=== PATIENT | male | born 1995 | race Caucasian/White ===

== ENCOUNTER → 2024-03-23 | Outpatient (CLI) | payer BC, SELFPAY ==
--- NOTE | 2024-03-23 16:00 | XR_ITS ---
Examination: MRI lumbar spine without contrast Date and time of exam: March 23, 2024 1652 hours INDICATIONS: Lower back pain radiating down both legs paresthesias and numbness in both legs beginning 2017 worse since August 2023 Technique: Multiple MRI axial and sagittal sections lumbar spine. Sagittal T2-weighted images, TR 3500, TE 118 T1 weighted transverse sections, TR 688 T8.5, T2-weighted sagittal sections T1 weighted sagittal sections TR 621, TE 30 T2 axial sections, TR 4, 190, TE 84. Findings: Straightening normal lumbar lordosis No lumbar fracture Disc desiccation L4-L5 No spondylolisthesis L5-S1 2 mm central right paracentral disc bulge contiguous with the right S1 nerve root L4-L5 large, 9 mm extruded central right paracentral disc, severely indenting the thecal sac L3-L4 no disc protrusion L2-L3 no disc protrusion L1-L2 no disc protrusion IMPRESSION: L5-S1 2 mm central right paracentral disc bulge L4-L5 large, 9 mm, extruded central right paracentral disc, severely indenting the thecal sac
== END | disposition home or self-care (01) ==
PROVIDERS: PCP Physician Assistant; Referring Provider Physician Assistant; Visit Provider Physician Assistant
DX: M51.379 Other intervertebral disc degeneration, lumbosacral region without mention of lumbar back pain or lower extremity pain (principal); M51.369 Other intervertebral disc degeneration, lumbar region without mention of lumbar back pain or lower extremity pain; M51.26 Other intervertebral disc displacement, lumbar region
CPT/HCPCS: 72148

== ENCOUNTER 2024-05-14 21:28 | Emergency (ER) | payer OTHER, BC, SELFPAY ==
[2024-05-14 21:30] VITALS: BMI 32.5
--- NOTE | 2024-05-14 22:39 | XR_ITS ---
Examination: CT lumbar spine, without contrast. 2-D sagittal reconstructions. 2-D coronal reconstructions. 3-D reconstructions. Date and time of exam:May 15, 2024 0157 hrs. Indications: Lower back pain post surgery this week CTDI: vol (mGy):52.2 DLP: (mGycm):1498 Technique: Multiple 1.25 mm axial sections of the lumbar spine without intravenous contrast have been obtained. 2-D sagittal and coronal reconstructions have been obtained. 3-D reconstructions have been obtained. Low dose protocols were performed. One or more of the following dose reduction techniques were used; automated exposure control, adjustment of the mA and/or KV according to patient size, use of iterative reconstruction technique. Findings: Adequate alignment lumbar vertebral bodies Mild disc narrowing L4-L5 Status post laminectomies L4, L5 No vertebral body fracture L5-S1, L4-L5 right neural foraminal stenosis with mild compression L5 and right L4 nerve roots Impression: L4-L5, L5-S1 right neural foraminal stenosis with mild compression right L4 and L5 nerve roots
--- NOTE | 2024-05-14 22:40 | PD.EDADDENDU ---
Emergency Room Addendum Addendum Narrative: 28 yo m present to ED for c/o of swelling/increase drainage lower back, recent back surgery I have greeted and performed a focused initial assessment of this patient. A comprehensive ED assessment and evaluation of the patient, analysis of all test results, and completion of the medical decision making process will be conducted by additional ED providers.
[2024-05-14 22:47] VITALS: BP 120/79; PULSE 142; RESP 19; TEMP 38.3; O2SAT 96
--- NOTE | 2024-05-14 22:49 | EKG_ITS ---
[facility] Test Date: 2024-05-14 Pat Name: JOEL BALDERAS Department: Room: - Gender: Male Secret Code Expert: : 1995 Requested By: Clay Howell Order Number: [id number] Reading MD: Clay Howell Measurements Intervals [place] Rate: 125 P: 57 CA: 154 QRS: 78 QRSD: 106 T: 43 QT: 293 QTc: 423 Interpretive Statements SINUS TACHYCARDIA ABNORMAL RHYTHM ECG No previous ECG available for comparison /store/S0/[id number]/ecg/[id number].pdf
[2024-05-14 23:00] VITALS: PULSE 128; RESP 18; RESP 89; O2SAT 989
--- NOTE | 2024-05-14 23:00 | PC.NURSE ---
Initail contact with pt. s/p lower back surgery on 05/03/24. Drsg to lower back intact, clean and dry. Pt c/o lower back pain and numbness to rt side of back radiating down to rt lower leg, lat aspect.
[2024-05-14 23:08] LABS: Lactate (Lactic Acid) 1.6 mMol/L (0.4-2.0)
[2024-05-14 23:10] LABS: Basophils # (Auto) 0.1 Thou/mm3 (0.0-0.2); Basophils % (Auto) 0 % (0-2.5); Eosinophils # (Auto) 0.1 Thou/mm3 (0.0-0.5); Eosinophils % (Auto) 0 % (0-10); Hematocrit 42.1 % (41.0-53.0); Hemoglobin 14.6 g/dL (13.5-16.0); Immature Granulocytes % (Auto) 1 % (0-0); Immature Granulocytes Auto 0.08 Thou/mm3 (0.00-0.00); Lymphocytes # (Auto) 0.9 Thou/mm3 (1.0-4.8); Lymphocytes % (Auto) 6 % (10-50); Mean Corpuscular HGB Conc 34.7 g/dl (31.0-37.0); Mean Corpuscular Hemoglobin 29.9 pg (25.0-35.0); Mean Corpuscular Volume 86 fL (80-100); Monocytes % (Auto) 6 % (0-12); Neutrophils # (Auto) 13.1 Thou/mm3 (1.8-7.7); Neutrophils % (Auto) 86 % (37-80); Nucleated Red Blood Cell % 0 /100 WBC (0); Platelet Count 285 Thou/mm3 (140-440); RDW Standard Deviation 39.4 fL (35.1-43.9); Red Blood Count 4.89 Miln/mm3 (4.50-5.90); White Blood Count 15.2 Thou/mm3 (3.8-10.6)
[2024-05-14 23:20] LABS: Sed Rate (ESR) 5 mm/hr (0-15)
--- NOTE | 2024-05-14 23:21 | PD.EDADULT ---
ED General RME/HPI General Chief complaint: Back Pain/Injury Stated complaint: LOWER BACK PAIN, RECENT BACK SURGERY Time Seen by Provider: 05/15/24 04:05 Arrival date/time: 05/14/24 21:28 RME / HPI RME / HPI narrative: Patient is 28 years old male with past medical history significant of recent laminectomy 2 weeks ago presented to the ED due to severe back pain and increased output from incision. He reports he underwent laminectomy at [facility] 2 weeks ago and his postoperative course was insignificant until yesterday when he noticed increased output of dark brown fluid from his incision site. He also developed significant pain. He reports chills. He reports that after surgery he developed numbness in right lower extremity and was reassured by his surgeon that it will improve slowly with the time. He denies any chest pain, abdominal pain, weakness in lower extremities, urinary or fecal incontinence. Related Data Home Medications ?Medication ?Instructions ?Recorded ?Confirmed cyclobenzaprine 10 mg tablet 10 mg PO Q8H 05/15/24 05/15/24 doxepin 10 mg capsule 10 mg PO .At HS 05/15/24 05/15/24 famotidine 20 mg tablet 20 mg PO Q12H 05/15/24 05/15/24 hydromorphone 4 mg tablet 4 mg PO Q4H 05/15/24 05/15/24 nortriptyline 10 mg capsule 10 mg PO .At HS 05/15/24 05/15/24 pregabalin 100 mg capsule (Lyrica) 100 mg PO TID Nerve pain 05/15/24 05/15/24 Previous Rx's ?Medication ?Instructions ?Recorded ibuprofen 600 mg tablet 600 mg PO Q6H PRN pain #30 tabs 10/04/23 lidocaine 5 % topical patch 1 patch topical Q24H #15 ea 10/04/23 Allergies Allergy/AdvReac Type Severity Reaction Status Date / Time No Known Allergies Allergy Verified 05/14/24 21:30 Review of Systems Review of Systems Systems Reviewed: All systems reviewed, normal except as documented ED Exam Narrative Physical exam: Gen: Well-developed and well-nourished male. HEENT: NCAT, PERRLA, EOMI, MMM, anicteric conjunctivae. CVS: normal S1 and S2. RRR. No M/R/G. Resp: CTA B/L. No rhonchi, rales, crackles or wheezing. Abd: soft, non-tender, non-distended. BS+ in all 4 quadrants. MSK: Good ROM in BUE & BLE. No edema or rash. 5 cm midline lumbar surgical scar with with surrounding hyperemia and tenderness, no drainage. Neuro: CN II-XII grossly intact. Strength 5/5 in BUE & BLE. Alert and oriented x3. Decreased sensations over RLE. Psych: appropriate mood and affect. Course Course Course Narrative: 0340: CT scan showed infection process at surgical site. 0430: transfer process initiated. 0600: passed to day shift. Quality Measures Current suspected stage: sepsis Possible source: other (post op surgical site) Blood cultures ordered: yes Antibiotic ordered: Yes Pertinent labs: 05/14/24 22:50 Lactic Acid 1.6 mMol/L (0.4-2.0) Procalcitonin 0.11 ng/ml (0.0-0.49) sepsis Orders Category Date Time Status Transcript Clerk STAT Care 05/14/24 22:49 Active Continuous Pulse Oximetry STAT Care 05/14/24 22:49 Active EKG (ED ONLY) *Do not use* NOW Care 05/14/24 22:49 Completed Insert IV NOW Care 05/14/24 22:49 Active NPO STAT Care 05/14/24 22:49 Active Transfer to another facility [Transfer/Discharge] Stat Discharge 05/15/24 04:[address] lumbar spine wo/w con Stat Exams 05/14/24 22:[address] lumbar spine wo/w con Stat Exams 05/15/24 00:42 Ordered EKG (ED Only) Stat Exams 05/14/24 22:49 Draft Blood Culture (Lab) Stat Lab 05/14/24 22:55 Received CBC Stat Lab 05/14/24 22:50 Completed CMP [Comprehensive Metabolic Panel] Stat Lab 05/14/24 22:50 Completed CRP [C-Reactive Protein] Stat Lab 05/14/24 22:50 Completed ESR [Sed Rate (ESR)] Stat Lab 05/14/24 22:50 Completed INR [Prothrombin Time with INR] Stat Lab 05/14/24 22:50 Completed LDH (Lactate Dehydrogenase) Stat Lab 05/14/24 22:50 Completed Lactic Acid [Lactate (Lactic Acid)] Stat Lab 05/14/24 22:50 Completed Lipase Stat Lab 05/14/24 22:50 Completed Magnesium Stat Lab 05/14/24 22:50 Completed Partial Thromboplastin Time Stat Lab 05/14/24 22:50 Completed Phosphorous Stat Lab 05/14/24 22:50 Completed Procalcitonin Stat Lab 05/14/24 22:50 Completed Troponin I Stat Lab 05/14/24 22:50 Completed Urinalysis Stat Lab 05/15/24 00:31 Completed Urine Culture Stat Lab 05/15/24 00:31 Received Wound Culture and Gram Stain Stat Lab 05/15/24 05:36 Ordered Acetaminophen Tab [Tylenol ES Tab] Med 05/14/24 22:49 Discontinued 1,000 mg PO X1 ONE HYDROmorphone INJ [Dilaudid Inj] Med 05/14/24 22:39 Discontinued 1 mg IVP X1 ONE HYDROmorphone INJ [Dilaudid Inj] Med 05/15/24 04:54 Discontinued 1 mg IVP X1 ONE Ringers Lactated 1000 ml [Lactated Ringers] 1,000 ml Med 05/14/24 22:49 Discontinued IV 999 mls/hr Vancomycin Inj 1,000 mg Med 05/15/24 04:27 Discontinued Sodium Chloride 0.9% 250 ml [Ns] 250 ml IV X1 cefTRIAXone [Rocephin] 1,000 mg Med 05/14/24 22:49 Discontinued SODIUM CHLORIDE 0.9% (Popper) [Ns 0.9% (P)] 50 ml IV X1 cefTRIAXone [Rocephin] 1,000 mg Med 05/15/24 04:26 Discontinued SODIUM CHLORIDE 0.9% (Popper) [Ns 0.9% (P)] 50 ml IV X1 Oxygen Delivery NOW RT 05/14/24 22:49 Active Vital Signs Vital signs: Vital Signs Temperature 100.9 F H 05/14/24 22:47 Pulse Rate 142 H 05/14/24 22:47 Respiratory Rate 19 05/14/24 22:47 Blood Pressure 120/79 05/14/24 22:47 Pulse Oximetry (%) 96 05/14/24 22:47 Oxygen Delivery Method Room Air 05/14/24 22:47 Procedures -ED EKG Interpretation #1: Date of EK05/14/24 Time of EK:12 Rate: 125 Interpretation: Reviewed by me EKG Impression: Sinus arrhythmia MDM Patient data External records reviewed:: [facility] previous records Clinical information provided by:: patient Social determinants that could affect healthcare access:: none Patient has the following chronic illnesses:: recent laminectomy 2 weeks ago How is presenting disease/condition affected by chronic disease/condition?: caused by Evaluation data The following diagnostics were reviewed and interpreted by me:: lab results, radiology exam(s) and EKG tracing(s) Lab and/or radiology exams considered but not ordered:: MRI Interpretation Summary: Post op infection Medications Medications considered but not ordered:: na Medication administrations:: Medication Administration History Discontinued Medications Acetaminophen (Acetaminophen 500 Mg Tablet) 1,000 mg PO X1 ONE Stop: 05/14/24 22:50 Last Admin: 05/14/24 23:23 Dose: 1,000 mg Documented By: FINA Hydromorphone HCl (Hydromorphone Inj 2 Mg/Ml Vial) 1 mg IVP X1 ONE Stop: 05/14/24 22:40 Last Admin: 05/14/24 23:24 Dose: 1 mg Documented By: FINA Hydromorphone HCl (Hydromorphone Inj 2 Mg/Ml Vial) 1 mg IVP X1 ONE Stop: 05/15/24 04:55 Last Admin: 05/15/24 06:07 Dose: 1 mg Documented By: FINA Lactated Ringer's (Lactated Ringers) 1,000 mls @ 999 mls/hr IV .Q1H1M ONE Stop: 05/14/24 23:49 Last Infusion: 05/15/24 00:26 Dose: Infused Documented By: Admin: 05/14/24 23:25 Dose: 999 mls/hr Documented By: FINA Ceftriaxone Sodium 1,000 mg/ (Sodium Chloride) 50 mls @ 100 mls/hr IV X1 ONE Stop: 05/14/24 23:18 Last Infusion: 05/14/24 23:59 Dose: Infused Documented By: Admin: 05/14/24 23:29 Dose: 100 mls/hr Documented By: FINA Ceftriaxone Sodium 1,000 mg/ (Sodium Chloride) 50 mls @ 100 mls/hr IV X1 ONE Stop: 05/15/24 04:55 Last Admin: 05/15/24 04:48 Dose: 100 mls/hr Documented By: FINA Vancomycin HCl 1,000 mg/ (Sodium Chloride) 250 mls @ 150 mls/hr IV X1 ONE Stop: 05/15/24 06:06 Last Admin: 05/15/24 06:02 Dose: 150 mls/hr Documented By: LB Ceftriaxone 2g, vancomycin 1g, hydromorphone 1mg, acetaminophen 1g, LR 1L. Consultations Consultation(s) initiated? (list below): No Diagnosis Differential Diagnosis ED Complaint MDM: Cellulitis, abscess, post op infection Most likely diagnosis given after review of the tests above:: Post op infection Admission Indicated Admission indicated?: not indicated Explain why admission is indicated or not indicated:: Patient needs to be transferred to [facility] for evaluation of post op infection. Admission Request Was there a request for admission?: No Disposition Plan Disposition Plan: Transfer Medical Decision Making Differential Diagnosis Differential Diagnosis: Cellulitis, abscess, post op infection Lab Data 05/14/24 22:50 05/14/24 22:50 Labs: Lab Results 05/14/24 05/15/24 Range/Units 22:50 00:31 WBC 15.2 H (3.8-10.6) Thou/mm3 RBC 4.89 (4.50-5.90) Miln/mm3 Hgb 14.6 (13.5-16.0) g/dL Hct 42.1 (41.0-53.0) % MCV 86 (80-100) fL MCH 29.9 (25.0-35.0) pg MCHC 34.7 (31.0-37.0) g/dl RDW Std Deviation 39.4 (35.1-43.9) fL Plt Count 285 (140-440) Thou/mm3 Neut % (Auto) 86 H (37-80) % Lymph % (Auto) 6 L (10-50) % [place] % (Auto) 6 (0-12) % Eos % (Auto) 0 (0-10) % Baso % (Auto) 0 (0-2.5) % Neut # (Auto) 13.1 H (1.8-7.7) Thou/mm3 Lymph # (Auto) 0.9 L (1.0-4.8) Thou/mm3 [place] # (Auto) 1.0 H (0.0-0.8) Thou/mm3 Eos # (Auto) 0.1 (0.0-0.5) Thou/mm3 Baso # (Auto) 0.1 (0.0-0.2) Thou/mm3 Immature Gran # (Auto) 0.08 H (0.00-0.00) Thou/mm3 Absolute Nucleated RBC 0.00 (0.00-0.00) Thou/mm3 Immature Gran % 1 H (0-0) % Nucleated RBC % 0 (0) /100 WBC ESR 5 (0-15) mm/hr PT 10.9 (9.0-12.2) Seconds INR 1.0 (0.9-1.3) APTT 26.0 (22.0-36.0) Seconds Sodium 135 L (136-145) mMol/L Potassium 4.2 (3.4-5.1) mMol/L Chloride 100 (98-107) mMol/L Carbon Dioxide 27.3 (20.0-31.0) mMol/L Anion Gap 8 (7-16) BUN 16 (9-23) mg/dL Creatinine 1.2 (0.6-1.3) mg/dL Estim Creat Clear Calc 117.8 (>60) mL/min eGFR > 60 (60 - ) See Note BUN/Creatinine Ratio 13 (12-20) Ratio Glucose 102 (74-106) mg/dL Calculated Osmolality 271 L (275-295) Lactic Acid 1.6 (0.4-2.0) mMol/L Calcium 9.9 (8.3-10.6) mg/dL Corrected Calcium 9.9 (8.5-10.1) mg/dL Phosphorus 4.3 (2.4-5.1) mg/dL Magnesium 1.8 (1.6-2.6) mg/dL Total Bilirubin 0.5 (0.3-1.2) mg/dL AST 26 (0-34) U/L ALT 57 H (10-49) U/L Alkaline Phosphatase 41 L (46-116) U/L Lactate Dehydrogenase 153 (120-246) U/L Troponin I < 0.002 (0.0-0.045) ng/mL C-Reactive Prot, Quant 1.8 H (0.0-0.9) mg/dL Total Protein 7.6 (5.7-8.2) gm/dL Albumin 5.1 H (3.5-5.0) gm/dL Globulin 2.5 (2.3-3.5) gm/dL Albumin/Globulin Ratio 2.0 (1.2-2.2) Lipase 31 (12-53) U/L Procalcitonin 0.11 (0.0-0.49) ng/ml Ur Collection Type Clean Catch Urine Color Lt-Yellow (Lt Yel-Yel) Urine Clarity Clear (Clear/Hazy) Urine pH 6.5 (5.0-7.0) Ur Specific [place] 1.013 (1.001-1.035) Urine Protein Negative (Neg - Trace) Urine Glucose (UA) Negative (Negative) Urine Ketones Negative (Negative) Urine Blood Negative (Negative) Urine Nitrite Negative (Negative) Urine Bilirubin Negative (Negative) Urine Urobilinogen (Auto) Negative (0.0-1.0) mg/dL Ur Leukocyte Esterase Negative (Negative) Urine RBC 1 (0-3) /hpf Urine WBC < 1 (0-5) /hpf Ur Squamous Epith Cells 0 (0-5) /hpf Urine Bacteria None (None) Discharge Plan Plan Facility Pt Being Transferred to: [facility] Prescriptions/Referrals Prescriptions/Med Rec: No Action ibuprofen 600 mg tablet 600 mg PO Q6H PRN (Reason: pain) Qty: 30 0RF lidocaine 5 % adhesive patch,medicated 1 patch topical Q24H Qty: 15 0RF Rx Instructions: leave on most painful area for up to 12 hrs cyclobenzaprine 10 mg tablet 10 mg PO Q8H Patient Comments: TAKE 1 TABLET BY MOUTH 3 TIMES A DAY doxepin 10 mg capsule 10 mg PO .At HS Patient Comments: take 1 capsule by mouth at bedtime famotidine 20 mg tablet 20 mg PO Q12H Patient Comments: take 1 tablet by mouth twice a day nortriptyline 10 mg capsule 10 mg PO .At HS Patient Comments: TAKE 2 CAPSULES BY MOUTH AT BEDTIME hydromorphone 4 mg tablet 4 mg PO Q4H Patient Comments: take 1 tablet by mouth four times a day pregabalin [Lyrica] 100 mg capsule 100 mg PO TID Referrals: No Primary/Family,Physician [Primary Care Provider] - In 1 week Problem List Clinical Impression: Post op infection Patient/Caregiver Discharge Instructions Print Language: Niuean Stand Alone Forms: Priscila Award Info., Patient Portal Info Letter Attestation Attestation I, Dr. Malinda MD was present for the pertinent history and physical exam for this patient, reviewed the note, was involved in the management of this patient, have reviewed the resident note and agree.
[2024-05-14 23:23] VITALS: TEMP 38.3
[2024-05-14] MEDS: ACETAMINOPHEN 500 MG TABLET 1000 MG PO (23:23)
[2024-05-14] MEDS: HYDROmorphone INJ 2 MG/ML VIAL 1 MG IVP (23:24)
[2024-05-14] MEDS: RINGERS LACTATED 1000 ML 1,000 ML 999 ML IV (23:25)
[2024-05-14 23:29] LABS: Prothrombin Time 10.9 Seconds (9.0-12.2)
[2024-05-14] MEDS: cefTRIAXone 1,000 MG in SODIUM CHLORIDE 0.9% (Popper) 50 ML 100 MG IV (23:29)
[2024-05-14 23:40] LABS: Alanine Aminotransferase 57 U/L (10-49); Albumin, Serum 5.1 gm/dL (3.5-5.0); Alkaline Phosphatase 41 U/L (46-116); Anion Gap 8 (7-16); Aspartate Amino Transferase 26 U/L (0-34); BUN/Creatinine Ratio 13 Ratio (12-20); Bilirubin,Total 0.5 mg/dL (0.3-1.2); Blood Urea Nitrogen 16 mg/dL (9-23); C-Reactive Protein 1.8 mg/dL (0.0-0.9); Calcium 9.9 mg/dL (8.3-10.6); Calcium (Corrected) 9.9 mg/dL (8.5-10.1); Carbon Dioxide 27.3 mMol/L (20.0-31.0); Chloride 100 mMol/L (98-107); Creatinine (Component) 1.2 mg/dL (0.6-1.3); Estimated Creatinine Clearance 117.8 mL/min (>60); Globulin 2.5 gm/dL (2.3-3.5); Glucose 102 mg/dL (74-106); LDH (Lactate Dehydrogenase) 153 U/L (120-246); Lipase 31 U/L (12-53); Magnesium 1.8 mg/dL (1.6-2.6); Osmolality,Calculated 271 (275-295); Phosphorous 4.3 mg/dL (2.4-5.1); Potassium 4.2 mMol/L (3.4-5.1); Procalcitonin 0.11 ng/ml (0.0-0.49); Sodium 135 mMol/L (136-145); Total Protein 7.6 gm/dL (5.7-8.2); Troponin I < 0.002 ng/mL (0.0-0.045); eGFR > 60 See Note
[2024-05-15] VITALS (8 sets, daily range): BP systolic 104–146; BP diastolic 57–73; PULSE 96–122; RESP 15–18; TEMP 37.1–37.6; O2SAT 94–98
[2024-05-15 00:52] LABS: Collection Type, Urine Clean Catch; Squamous Epithelial Cell,Urine 0 /hpf (0-5)
[2024-05-15 01:00] LABS: Bilirubin,Urine Negative (Negative); Blood,Urine Negative (Negative); Clarity,Urine Clear (Clear/Hazy); Color,Urine Lt-Yellow (Lt Yel-Yel); Glucose, Urine Negative (Negative); Ketones,Urine Negative (Negative); Leukocyte Esterase,Urine Negative (Negative); Nitrite,Urine Negative (Negative); PH,Urine 6.5 (5.0-7.0); Protein,Urine Negative (Neg - Trace); RBC,Urine 1 /hpf (0-3); Specific Gravity,Urine 1.013 (1.001-1.035); Urobilinogen,Urine Negative mg/dL (0.0-1.0); WBC,Urine < 1 /hpf (0-5)
--- NOTE | 2024-05-15 01:51 | PC.NURSE ---
To ct-scan via w/c.
--- NOTE | 2024-05-15 03:39 | PRELIM_ITS ---
CT scan of the lumbar spine without and with intravenous contrast (axial sections with sagittal and coronal reformats) May 15, 2024 at 0157 hours Clinical History: Swelling, drainage, recent back surgery, rule out abscess. Comparison: No prior study is available for comparison. Findings: Status post L4 spinolaminectomy. There is operative bed subcutaneous fat stranding , edema and paraspinal muscles swelling ; no drainable collections. There is no fracture or subluxation. The vertebral body height and intervertebral disc spaces are normal. There is L4/5 posterior disc protrusion causing moderate right and mild left foraminal narrowing. The soft tissues are unremarkable. No evidence of abnormal contrast enhancement. Prominent left para aortic lymph nodes. Impression: Status post L4 spinolaminectomy. Operative bed subcutaneous fat stranding , edema and paraspinal muscles swelling likely postoperative changes; no drainable collections. Report Electronically Signed By: Davis Mars 05/15/2024 3:39:18 AM [EST]
[2024-05-15] MEDS: cefTRIAXone 1,000 MG in SODIUM CHLORIDE 0.9% (Popper) 50 ML 100 MG IV (04:48)
[2024-05-15] MEDS: Vancomycin Inj 1,000 MG in SODIUM CHLORIDE 0.9% 250 ML 250 ML 150 MG IV (06:02)
[2024-05-15] MEDS: HYDROmorphone INJ 2 MG/ML VIAL 1 MG IVP ×2 (06:07→10:09)
--- NOTE | 2024-05-15 07:30 | PC.NURSE ---
Pt resting quietly in room with eyes closed. Will cont to monitor.
--- NOTE | 2024-05-15 08:30 | EDNOTE_ITS ---
Emergency Room Addendum Addendum Narrative: Patient signed out he is postop laminectomy from [facility] with a neurosurgeon over there. He is 2 weeks postop and has fever drainage and redness at his wound site. CT scan shows inflammatory changes which are indeterminate. His white count is elevated. Since he is a postop surgical patient he should be transferred back to his neurosurgeon for further evaluation. This information was passed on to Nadja our transfer nurse with the information above. At 0930 hrs. [facility] called back spoke to the transfer nurse Kennedi discussed the information and they will work on a transfer for us. I found a couple hours later the patient was accepted in transfer. Patient had some recurring back pain and got several doses of Dilaudid while in the emergency department. Otherwise he appeared comfortable and patient was accepted back to the facility where he did his original surgery
--- NOTE | 2024-05-15 09:32 | PC.CM ---
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 Packet given to charge nurse along with CD. Addendum entered by Nadja Deleon RN 05/15/24 10:21: Patient has been accepted at [facility] ED to eD with Dr. Gamboa. Number to call and give report is [phone]. I will call for CD and call to set up transport. Original Note: 0837 I received a referral to transfer patient for neurosurgery for recent laminectomy at [facility]. Patient has an infected surgical site. I called [facility] and initiated transfer. I pushed over images and started transfer packet.
--- NOTE | 2024-05-15 10:30 | PC.NURSE ---
Dr. Aguilar ordered CT scan but scans already done. Order discontinued due to being a duplicate order and procedures already completed.
--- NOTE | 2024-05-15 12:39 | PC.NURSE ---
Report called to López ALDRICH at [facility] ED. Transport arrival 13:00.
--- NOTE | 2024-05-15 12:42 | PC.NURSE ---
Dilaudid order input incorrectly. Pharmacist Elver asked to re-enter the order so original order discontinued. Will put in VO from Dilrichelleid 1.5mg IVP now.
[2024-05-15] MEDS: HYDROmorphone INJ 2 MG/ML VIAL 1.5 MG IVP (12:52)
--- NOTE | 2024-05-15 13:01 | PC.NURSE ---
Pt left to [facility] via gurney transported by [facility] and ambulance personnel. VSS.
== END 2024-05-15 13:21 | disposition short-term general hospital (02) ==
PROVIDERS: Physician Assistant; Emergency Provider Emergency Medicine
DX: T81.40XA Infection following a procedure, unspecified, initial encounter (principal); M54.50 Low back pain, unspecified
CPT/HCPCS: 36415; 72133; 80053; 81001; 83605; 83615; 83690; 83735; 84100; 84145; 84484; 85025; 85610; 85652; 85730; 86140; 87040; 87070; 87086; 87205; 93005; 96365; 96375; 96376; 99285; A4649; J0696; J3371; J3490; J7050; J7120; Q9967; A9270

== ENCOUNTER → 2024-10-31 | Outpatient (CLI) | payer BC, OTHER, SELFPAY ==
[2024-10-31 11:44] LABS: Basophils # (Auto) 0.0 Thou/mm3 (0.0-0.2); Basophils % (Auto) 1 % (0-2.5); Eosinophils # (Auto) 0.1 Thou/mm3 (0.0-0.5); Eosinophils % (Auto) 2 % (0-10); Hematocrit 46.0 % (41.0-53.0); Hemoglobin 16.4 g/dL (13.5-16.0); Immature Granulocytes Auto 0.01 Thou/mm3 (0.00-0.00); Lymphocytes # (Auto) 1.3 Thou/mm3 (1.0-4.8); Lymphocytes % (Auto) 24 % (10-50); Mean Corpuscular HGB Conc 35.7 g/dl (31.0-37.0); Mean Corpuscular Hemoglobin 31.2 pg (25.0-35.0); Mean Corpuscular Volume 88 fL (80-100); Monocytes # (Auto) 0.5 Thou/mm3 (0.0-0.8); Monocytes % (Auto) 10 % (0-12); Neutrophils # (Auto) 3.4 Thou/mm3 (1.8-7.7); Neutrophils % (Auto) 63 % (37-80); Nucleated Red Blood Cell # 0.00 Thou/mm3 (0.00-0.00); Nucleated Red Blood Cell % 0 /100 WBC (0); Platelet Count 300 Thou/mm3 (140-440); RDW Standard Deviation 42.5 fL (35.1-43.9); Red Blood Count 5.25 Miln/mm3 (4.50-5.90); White Blood Count 5.4 Thou/mm3 (3.8-10.6)
[2024-10-31 11:57] LABS: Alanine Aminotransferase 67 U/L (10-49); Albumin, Serum 5.0 gm/dL (3.5-5.0); Alkaline Phosphatase 53 U/L (46-116); Anion Gap 9 (7-16); Aspartate Amino Transferase 31 U/L (0-34); BUN/Creatinine Ratio 9 Ratio (12-20); Bilirubin,Direct 0.1 mg/dL (0.0-0.3); Bilirubin,Total 0.5 mg/dL (0.3-1.2); Blood Urea Nitrogen 11 mg/dL (9-23); Calcium 10.6 mg/dL (8.3-10.6); Carbon Dioxide 27.6 mMol/L (20.0-31.0); Chloride 103 mMol/L (98-107); Creatinine (Component) 1.2 mg/dL (0.6-1.3); Glucose 85 mg/dL (74-106); Osmolality,Calculated 277 (275-295); Potassium 4.6 mMol/L (3.4-5.1); Sodium 140 mMol/L (136-145); Total Protein 7.2 gm/dL (5.7-8.2); eGFR > 60 See Note
[2024-11-13 09:00] LABS: Testosterone, Free,Dialysis 219.0 pg/mL (35.0-155.0); Testosterone, Total, Dialysis 633 ng/dL (250-1100)
== END | disposition home or self-care (01) ==
PROVIDERS: PCP Family Medicine; Referring Provider Family Medicine; Visit Provider Family Medicine
DX: N52.9 Male erectile dysfunction, unspecified (principal); M51.9 Unspecified thoracic, thoracolumbar and lumbosacral intervertebral disc disorder
CPT/HCPCS: 36415; 80048; 80076; 84402; 84403; 85025

== ENCOUNTER → 2025-01-31 | Outpatient (CLI) | payer BC, OTHER, SELFPAY ==
[2025-01-31 08:55] LABS: Lactate (Lactic Acid) 1.4 mMol/L (0.4-2.0)
[2025-01-31 09:16] LABS: Basophils # (Auto) 0.0 Thou/mm3 (0.0-0.2); Basophils % (Auto) 1 % (0-2.5); Eosinophils # (Auto) 0.1 Thou/mm3 (0.0-0.5); Eosinophils % (Auto) 3 % (0-10); Hematocrit 46.0 % (41.0-53.0); Hemoglobin 15.2 g/dL (13.5-16.0); Immature Granulocytes Auto 0.01 Thou/mm3 (0.00-0.00); Lymphocytes # (Auto) 1.3 Thou/mm3 (1.0-4.8); Lymphocytes % (Auto) 30 % (10-50); Mean Corpuscular HGB Conc 33.0 g/dl (31.0-37.0); Mean Corpuscular Hemoglobin 29.7 pg (25.0-35.0); Mean Corpuscular Volume 90 fL (80-100); Monocytes # (Auto) 0.6 Thou/mm3 (0.0-0.8); Monocytes % (Auto) 14 % (0-12); Neutrophils # (Auto) 2.3 Thou/mm3 (1.8-7.7); Neutrophils % (Auto) 53 % (37-80); Nucleated Red Blood Cell # 0.00 Thou/mm3 (0.00-0.00); Nucleated Red Blood Cell % 0 /100 WBC (0); Platelet Count 251 Thou/mm3 (140-440); RDW Standard Deviation 43.1 fL (35.1-43.9); Red Blood Count 5.11 Miln/mm3 (4.50-5.90); White Blood Count 4.3 Thou/mm3 (3.8-10.6)
[2025-01-31 09:55] LABS: Sed Rate (ESR) 2 mm/hr (0-15)
== END | disposition home or self-care (01) ==
PROVIDERS: PCP Family Medicine; Referring Provider Family Medicine; Visit Provider Family Medicine
DX: M51.9 Unspecified thoracic, thoracolumbar and lumbosacral intervertebral disc disorder (principal)
CPT/HCPCS: 36415; 83605; 85025; 85652